=== PATIENT | male | born 1955 | race African-American/Black ===

== ENCOUNTER 2021-01-11 01:36 | Emergency (ER) | payer MEDICARE ==
[~2021-01-11] VITALS: Ht 185.4 cm; Wt 115.1 kg
--- NOTE | 2021-01-11 01:51 | PHYS DOC ---
Past History Past Medical History: High Cholesterol, Hypertension Past Surgical History: Angioplasty, Other Smoking: Less than 1pk/day Alcohol Use: None Drug Use: None General Adult EDM: Chief Complaint: CHEST PAIN HPI: HPI: 65-year-old male presents with chest pain. The patient states that he was at home and was having chest pain that would not go away so he called EMS. He does not describe the chest pain. The patient has chest pain "all the time". He admits to drinking some alcohol today. He did not clearly answer whether he is done drugs today or not. He told the nurse that he uses cocaine every day. He denies fever or chills. Denies shortness of breath or diaphoresis. Review of Systems: Review of Systems: Constitutional: Denies fever or chills Eyes: Denies change in visual acuity HENT: Denies nasal congestion or sore throat Respiratory: Denies cough or shortness of breath Cardiovascular: Chest pain GI: Denies abdominal pain, nausea, vomiting, bloody stools or diarrhea : Denies dysuria Musculoskeletal: Denies back pain or joint pain Integument: Denies rash Neurologic: Denies headache, focal weakness or sensory changes Endocrine: Denies polyuria or polydipsia Lymphatic: Denies swollen glands Psychiatric: Denies depression or anxiety Allergies: Allergies: Allergies Coded Allergies Type Severity Reaction Last Updated Verified No Known Drug Allergies 06/11/13 No Physical Exam: PE: Constitutional: Well developed, well nourished, obese, no acute distress, intoxicated. [] HENT: Normocephalic, atraumatic, bilateral external ears normal, oropharynx moist, no oral exudates, nose normal. [] Eyes: Eyes closed [] Neck: Normal range of motion, no tenderness, supple, no stridor. [] Cardiovascular: Heart rate 88, regular rhythm, no murmur [] Lungs & Thorax: Bilateral breath sounds clear to auscultation [] Abdomen: Bowel sounds normal, soft, no tenderness, no masses, no pulsatile masses. [] Skin: Warm, dry, no erythema, no rash. [] Back: No tenderness, no CVA tenderness. [] Extremities: No tenderness, no cyanosis, no clubbing, ROM intact, no edema. [] Neurologic: Alert and oriented X 3, normal motor function, normal sensory function, no focal deficits noted. [] Psychologic: Affect normal, judgement normal, mood normal. [] EKG: EKG: Sinus rhythm, rate 88, normal axis, no ST elevation or depression. [] Radiology/Procedures: Radiology/Procedures: [] Heart Score: C/O Chest Pain: Yes HEART Score for Chest Pain: HEART Score for Chest Pain Response (Comments) Value History Slighlty/Non-Suspicious 0 ECG Normal 0 Age >45 - < 65 1 Risk Factors 1 or 2 Risk Factors 1 Troponin < Normal Limit 0 Total 2 Risk Factors: Risk Factors: DM, Current or recent (<one month) smoker, HTN, HLP, family history of CAD, obesity. Risk Scores: Score 0 - 3: 2.5% MACE over next 6 weeks - Discharge Home Score 4 - 6: 20.3% MACE over next 6 weeks - Admit for Clinical Observation Score 7 - 10: 72.7% MACE over next 6 weeks - Early Invasive Strategies Course & Med Decision Making: Course & Med Decision Making Pertinent Labs and Imaging studies reviewed. (See chart for details) The patient's EKG is unremarkable. His labs are significant for an elevated creatinine of 2.5. His troponin is negative. He has no weight loss but his chest x-ray is vicious of possible right-sided consolidation. Official read is not available. The patient does not want to wait for the rest of his results wants to leave. He does not appear to have an acute cardiac event so he is discharged at this time. [] Amos Disclaimer: mAos Disclaimer: This electronic medical record was generated, in whole or in part, using a voice recognition dictation system. Departure Departure: Impression: Primary Impression: Chest pain Qualified Codes: R07.9 - Chest pain, unspecified Disposition: HOME / SELF CARE / HOMELESS Condition: STABLE Patient Instructions: Chest Pain (Nonspecific), [id number] NATHALY BROWN DO Jan 11, 2021 01:51
[2021-01-11 02:23] LABS: BASO # 0.1 x10^3/uL (0.0-0.2); BASO % 1 % (0-3); EOS # 0.2 x10^3/uL (0.0-0.7); EOS % 4 % (0-3); HEMATOCRIT 43.3 % (39.0-53.0); HEMOGLOBIN 14.7 g/dL (13.0-17.5); LYMPH # 1.7 x10^3/uL (1.0-4.8); LYMPH % 33 % (24-48); MEAN CORPUSCULAR HEMOGLOBIN 31 pg (25-35); MEAN CORPUSCULAR HGB CONC 34 g/dL (31-37); MEAN CORPUSCULAR VOLUME 92 fL (79-100); MONO # 0.8 x10^3/uL (0.0-1.1); MONO % 15 % (0-9); NEUT # 2.5 x10^3uL (1.8-7.7); NEUT % 48 % (31-73); PLATELET COUNT 257 x10^3/uL (140-400); RED BLOOD COUNT 4.69 x10^6/uL (4.30-5.70); RED CELL DISTRIBUTION WIDTH 13.2 % (11.5-14.5); WHITE BLOOD COUNT 5.2 x10^3/uL (4.0-11.0)
[2021-01-11 02:31] LABS: CALCIUM 9.1 mg/dL (8.5-10.1); CREATININE 2.5 mg/dL (0.7-1.3); GFR 31.6; POTASSIUM 3.4 mmol/L (3.5-5.1)
[2021-01-11 02:37] LABS: ALBUMIN 3.9 g/dL (3.4-5.0); TOTAL BILIRUBIN 0.9 mg/dL (0.2-1.0)
[2021-01-11 02:43] VITALS: BP 120/68
--- NOTE | 2021-01-11 02:50 | RAD ---
Site ID: [id number] EXAMINATION: XR CHEST 1V. HISTORY: 65 years Male Reason: Chest pain COMPARISON: None. Findings: The heart appears a enlarged. There is a slight prominence of the interstitial markings whi ch could relate to vascular congestion. No focal infiltrate. Opacity near the cardiac apex is probabl y related to pericardial fat pad and superimposition of soft tissues this portable radiograph. There is no effusion or pneumothorax. The mediastinum and nuha appear unremarkable. Impression: 1. Cardiomegaly with minimal vascular congestion. 2. Opacity near the cardiac apex likely related to pericardial fat pad and the portable technique sof t tissue superimposition with no definite underlying infiltrate Electronically signed by: Nam Brown MD (01/11/2021 2:47 AM) [id number]
--- NOTE | 2021-01-11 03:37 | EKG ---
[address] [id number] Test Date: 2021-01-11 Test Time: 01:38:39 Pat Name: GLEN KELLER Department: Room: Gender: M Key Entry Operator: : [id number] Requested By: NATHALY BROWN Order Number: [id number] Reading MD: Measurements Intervals [place] Rate: 88 P: 37 TN: 156 QRS: 3 QRSD: 88 T: 51 QT: 366 QTc: 446 Interpretive Statements SINUS RHYTHM OTHERWISE NORMAL ECG RI6.02 No previous ECG available for comparison
== END 2021-01-11 02:50 | disposition home or self-care (01) ==
LOC: ER 01:36
DX: R07.9 Chest pain, unspecified (principal); E78.00 Pure hypercholesterolemia, unspecified; I10 Essential (primary) hypertension; F17.200 Nicotine dependence, unspecified, uncomplicated; Z98.61 Coronary angioplasty status
CPT/HCPCS: 36415; 71045; 80053; 84484; 85025; 93005; 99285